=== PATIENT | female | born 1980 | race Caucasian/White ===

== ENCOUNTER 2024-11-07 16:17 | Emergency (ER) | payer OTHER ==
[2024-11-07 16:34] VITALS: RESP 18
--- NOTE | 2024-11-07 16:36 | ED ---
General Adult HPI - General Chief complaint: Urogenital Stated complaint: 7 wks, bleeding, cramping Time Seen by Provider: 11/07/24 16:35 Source: patient, RN notes reviewed Mode of arrival: ambulatory Limitations: no limitations - History of Present Illness Initial comments: This is a 44 year old female with no pertinent medical history, [id number], prese nting to the emergency department at approximately 7 weeks gestation with a chief complaint of vaginal bleeding and pelvic cramping. She states that this morning when she went to use the bathroom she noticed there was bright pink blood on the toilet paper. Patient went to [facility] where they evaluated her urine and discharged her stating that there were no signs of infection in her urine. She states that the bleeding has persisted and worsened through the day is not bright red. denies passage of clots. she endorses suprapubic tenderess. denies urinary complaints, nausea, vomiting, dizziness or lightheadedness. she has had an US within the last few weeks that has confirmed an IUP. Follow with Dr. Marroquin at [facility], has not yet had an appointment with her OB for this . - Related Data Allergies Allergy/AdvReac Type Severity Reaction Status Date / Time latex Allergy Rash/Hives Verified 11/07/24 16:34 Review of Systems ROS Statement: Those systems with pertinent positive or pertinent negative responses have been documented in the HPI. ROS Other: All systems not noted in ROS Statement are negative. Past Medical History Past Medical History: Asthma History of Any Multi-Drug Resistant Organisms: None Reported Past Surgical History: Orthopedic Surgery Past Psychological History: No Psychological Hx Reported Smoking Status: Current every day smoker Past Alcohol Use History: None Reported Past Drug Use History: None Reported General Exam Limitations: no limitations General appearance: alert, in no apparent distress Neck exam: Present: normal inspection. Absent: tenderness, meningismus, lymphadenopathy Respiratory exam: Present: normal lung sounds bilaterally. Absent: respiratory distress, wheezes, rales, rhonchi, stridor Cardiovascular Exam: Present: regular rate, normal rhythm, normal heart sounds. Absent: systolic murmur, diastolic murmur, rubs, gallop, clicks GI/Abdominal exam: Present: soft, tenderness (suprapubic/pelvic), normal bowel sounds. Absent: distended, guarding, rebound, rigid Extremities exam: Present: normal inspection, full ROM, normal capillary refill. Absent: tenderness, pedal edema, joint swelling, calf tenderness Back exam: Present: normal inspection. Absent: CVA tenderness (R), CVA tenderness (L) Course Vital Signs 11/07/24 11/07/24 11/07/24 16:30 16:56 18:40 Temperature 98.8 F 98.4 F Pulse Rate 73 81 76 Respiratory 18 18 18 Rate Blood Pressure 96/60 98/33 101/56 O2 Sat by Pulse 100 100 97 Oximetry Medical Decision Making - Medical Decision Making Was pt. sent in by a medical professional or institution (, PA, PURCHASING OFFICER, urgent care, hospital, or [facility]...) When possible be specific @ -No Did you speak to anyone other than the patient for history (EMS, parent, family, police, friend...)? What history was obtained from this source @ -No Did you review nursing and triage notes (agree or disagree)? Why? @ -I reviewed and agree with nursing and triage notes Were old charts reviewed (outside hosp., previous admission, EMS record, old EKG, old radiological studies, urgent care reports/EKG's, [facility] records)? Report findings @ -No old charts were reviewed Differential Diagnosis (chest pain, altered mental status, abdominal pain women, abdominal pain men, vaginal bleeding, weakness, fever, dyspnea, syncope, headache, dizziness, GI bleed, back pain, seizure, CVA, palpatations, mental health, musculoskeletal)? @ -Differential Vaginal Bleeding: Spontaneous , threatened , molar , ectopic , bloody show, incompetent cervix, abruptioplacenta, placenta previa, uterine rupture, dysfunctional uterine bleeding, hemorrhage, uterine fibroids, this is not meant to be an all-inclusive list. EKG interpreted by me (3pts min.). @ -None X-rays interpreted by me (1pt min.). @ -None done CT interpreted by me (1pt min.). @ -None done U/S interpreted by me (1pt. min.). @ -OB ultrasound. Completed with a intrauterine with an estimated gestational age of 6 weeks 0 days based on crown-rump length, no heart incidental at this time, findings indeterminate of potential early intrauterine or demise. What testing was considered but not performed or refused? (CT, X-rays, U/S, labs)? Why? @ -None What meds were considered but not given or refused? Why? @ -None Did you discuss the management of the patient with other professionals (professionals i.e. , PA, PURCHASING OFFICER, lab, RT, psych nurse, marriage and family social worker, pier hand, teacher, retail loan officer, counseling case manager)? Give summary @ -No Was smoking cessation discussed for >3mins.? @ -No Was critical care preformed (if so, how long)? @ -No Were there social determinants of health that impacted care today? How? (Homelessness, low income, unemployed, alcoholism, drug addiction, transportation, low edu. Level, literacy, decrease access to med. care, [facility]ci, rehab)? @ -No Was there de-escalation of care discussed even if they declined (Discuss DNR or withdrawal of care, Hospice)? DNR status @ -No What co-morbidities impacted this encounter? (DM, HTN, Smoking, COPD, CAD, Cancer, CVA, ARF, Chemo, Hep., AIDS, mental health diagnosis, sleep apnea, morbid obesity)? @ -None Was patient admitted / discharged? Hospital course, mention meds given and route, prescriptions, significant lab abnormalities, going to OR and other [facility] info. @ -discharged. 44-year-old female presents emergency room with vaginal bleeding during . Overall patient is well-appearing. She is noted have mild suprapubic/pelvic tenderness [place] [address]. Urinalysis unremarkable. Ultrasound reveals an intrauterine with a gestational age of 6 weeks with no heart tones detected at this time. Patient's blood type is B+. With concern for early or threatened miscarriage patient provided with prescription for repeat hCG testing in 48 hours and recommend repeat ultrasound in 1 week. Return parameters discussed. Case discussed with Dr. Steinberg Undiagnosed new problem with uncertain prognosis? @ -No Drug Therapy requiring intensive monitoring for toxicity (Heparin, Nitro, Insulin, Cardizem)? @ -No Were any procedures done? @ -No Diagnosis/symptom? @ -threatened miscarriage Acute, or Chronic, or Acute on Chronic? @ -acute Uncomplicated (without systemic symptoms) or Complicated (systemic symptoms)? @ -uncomplicated Side effects of treatment? @ -No Exacerbation, Progression, or Severe Exacerbation? @ -No Poses a threat to life or bodily function? How? (Chest pain, USA, CA, pneumonia, PE, COPD, DKA, ARF, appy, cholecystitis, CVA, Diverticulitis, Homicidal, Suicidal, threat to staff... and all critical care pts) @ -No - Lab Data Result diagrams: 11/07/24 17:05 11/07/24 17:05 Lab Results 11/07/24 11/07/24 11/07/24 Range/Units 17:04 17:05 17:05 WBC 7.91 (4.50-10.00) 10*3/uL RBC 4.89 (4.10-5.20) 10*6/uL Hgb 12.9 (12.0-15.0) g/dL Hct 39.8 (37.2-46.3) % MCV 81.4 (80.0-97.0) fL MCH 26.4 L (27.0-32.0) pg MCHC 32.4 (32.0-37.0) g/dL Plt Count 247 (140-440) 10*3/uL MPV 11.4 (9.5-12.2) fL Immature Gran % (Auto) 0.5 % Neutrophils % 51.7 % Lymphocytes % 37.3 % Monocytes % 5.3 % Eosinophils % 3.4 % Basophils % 1.8 % Immature Gran # 0.04 (0.00-0.04) 10*3/uL Neutrophils # 4.09 (1.80-7.70) 10*3/uL Lymphocytes # 2.95 (0.90-5.00) 10*3/uL Monocytes # 0.42 (0.20-1.00) 10*3/uL Eosinophils # 0.27 (0.04-0.35) 10*3/uL Basophils # 0.14 H (0.00-0.10) 10*3/uL Sodium (137-145) mmol/L Potassium (3.5-5.1) mmol/L Chloride (98-107) mmol/L Carbon Dioxide (22-30) mmol/L Anion Gap mmol/L BUN (7-17) mg/dL Creatinine (0.52-1.04) mg/dL Est GFR (CKD-EPI)AfAm (>60 ml/min/1.73 sqM) Est GFR (CKD-EPI)NonAf (>60 ml/min/1.73 sqM) Glucose (74-99) mg/dL Calcium (8.4-10.2) mg/dL Total Bilirubin (0.2-1.3) mg/dL AST (14-36) U/L ALT (4-34) U/L Alkaline Phosphatase (38-126) U/L Total Protein (6.3-8.2) g/dL Albumin (3.5-5.0) g/dL HCG, Quant mIU/mL Urine Color Yellow Urine Appearance Clear (Clear) Urine pH 8.0 (5.0-8.0) Ur Specific Appling 1.019 (1.001-1.035) Urine Protein Negative (Negative) Urine Glucose (UA) Negative (Negative) Urine Ketones Negative (Negative) Urine Blood Moderate H (Negative) Urine Nitrite Negative (Negative) Urine Bilirubin Negative (Negative) Urine Urobilinogen 2.0 (<2.0) mg/dL Ur Leukocyte Esterase Negative (Negative) Urine RBC 2 (0-5) /hpf Urine WBC 1 (0-5) /hpf Ur Squamous Epith Cells 2 (0-4) /hpf Urine Bacteria Rare H (None) /hpf Blood Type Blood Type Confirm B Positive Blood Type Recheck Bld Type Recheck Status Antibody Screen Spec Expiration Date 11/07/24 11/07/24 Range/Units 17:05 17:06 WBC (4.50-10.00) 10*3/uL RBC (4.10-5.20) 10*6/uL Hgb (12.0-15.0) g/dL Hct (37.2-46.3) % MCV (80.0-97.0) fL MCH (27.0-32.0) pg MCHC (32.0-37.0) g/dL Plt Count (140-440) 10*3/uL MPV (9.5-12.2) fL Immature Gran % (Auto) % Neutrophils % % Lymphocytes % % Monocytes % % Eosinophils % % Basophils % % Immature Gran # (0.00-0.04) 10*3/uL Neutrophils # (1.80-7.70) 10*3/uL Lymphocytes # (0.90-5.00) 10*3/uL Monocytes # (0.20-1.00) 10*3/uL Eosinophils # (0.04-0.35) 10*3/uL Basophils # (0.00-0.10) 10*3/uL Sodium 140 (137-145) mmol/L Potassium 3.8 (3.5-5.1) mmol/L Chloride 106 (98-107) mmol/L Carbon Dioxide 25 (22-30) mmol/L Anion Gap 9 mmol/L BUN 7 (7-17) mg/dL Creatinine 0.53 (0.52-1.04) mg/dL Est GFR (CKD-EPI)AfAm >90 (>60 ml/min/1.73 sqM) Est GFR (CKD-EPI)NonAf >90 (>60 ml/min/1.73 sqM) Glucose 95 (74-99) mg/dL Calcium 10.0 (8.4-10.2) mg/dL Total Bilirubin 0.6 (0.2-1.3) mg/dL AST 29 (14-36) U/L ALT 32 (4-34) U/L Alkaline Phosphatase 59 (38-126) U/L Total Protein 7.1 (6.3-8.2) g/dL Albumin 4.4 (3.5-5.0) g/dL HCG, Quant 8550.5 mIU/mL Urine Color Urine Appearance (Clear) Urine pH (5.0-8.0) Ur Specific [place] (1.001-1.035) Urine Protein (Negative) Urine Glucose (UA) (Negative) Urine Ketones (Negative) Urine Blood (Negative) Urine Nitrite (Negative) Urine Bilirubin (Negative) Urine Urobilinogen (<2.0) mg/dL Ur Leukocyte Esterase (Negative) Urine RBC (0-5) /hpf Urine WBC (0-5) /hpf Ur Squamous Epith Cells (0-4) /hpf Urine Bacteria (None) /hpf Blood Type B Positive Blood Type Confirm Blood Type Recheck No Previous Record Bld Type Recheck Status CABO Indicated Antibody Screen NEGATIVE Spec Expiration Date 11/10/20242305 Disposition Clinical Impression: Threatened miscarriage Disposition: HOME SELF-CARE Condition: Stable Instructions (If sedation given, give patient instructions): Threatened Miscarriage (ED) Additional Instructions: Please return to the Emergency Department if symptoms worsen or any other concerns. Follow-up with repeat hCG testing in 48 hours. Follow-up with OB or return to the emergency department in 7 days for repeat ultrasound testing. Is patient prescribed a controlled substance at d/c from ED?: No Referrals: Jake Membreno DO [Primary Care Provider] - 1-2 days Time of Disposition: 18:23
[2024-11-07 17:25] LABS: ALT 32 U/L (4-34); AST 29 U/L (14-36); African American GFR (CKD) >90 (>60 ml/min/1.73 sqM); Albumin 4.4 g/dL (3.5-5.0); Alkaline Phosphatase 59 U/L (38-126); Anion Gap 9 mmol/L; Blood Urea Nitrogen 7 mg/dL (7-17); Carbon Dioxide 25 mmol/L (22-30); Chloride 106 mmol/L (98-107); Glucose 95 mg/dL (74-99); Non-African American GFR(CKD) >90 (>60 ml/min/1.73 sqM); Potassium 3.8 mmol/L (3.5-5.1); Sodium 140 mmol/L (137-145); Total Bilirubin 0.6 mg/dL (0.2-1.3); Total Protein 7.1 g/dL (6.3-8.2)
[2024-11-07 17:42] LABS: HCG,Quantitative Serum 8550.5 mIU/mL
[2024-11-07 17:46] LABS: Appearance,Urine Clear (Clear); Bacteria,Urine Rare /hpf; Bilirubin,Urine Negative (Negative); Blood,Urine Moderate (Negative); Color,Urine Yellow; Glucose,Urine (UA) Negative (Negative); Ketones,Urine Negative (Negative); Leukocyte Esterase,Urine Negative (Negative); Nitrite,Urine Negative (Negative); Protein,Urine Negative (Negative); RBC,Urine 2 /hpf (0-5); Specific Gravity,Urine 1.019 (1.001-1.035); Squamous Epithelial Cell,Urine 2 /hpf (0-4); WBC,Urine 1 /hpf (0-5)
--- NOTE | 2024-11-07 17:54 | US ---
EXAMINATION TYPE: Transabdominal DATE OF EXAM: 11/07/2024 5:37 PM COMPARISON: NONE CLINICAL INDICATION: Female, 44 years old with history of 7 weeks, spotting and cramping; Patient st ates having previous ultrasound at [facility] a few weeks ago and heart beat was seen. Bleeding. TECHNIQUE: Transvaginal (TV) and Transabdominal (TA) with grayscale and color Doppler imaging includi ng first trimester . FINDINGS: EXAM MEASUREMENTS: GESTATIONAL AGE / DATING Physician Established: Not yet established Dates by LMP: LMP unknown Dates by First Scan: (7 weeks/3 days) EDC: 06/23/2025 Dates by Current Scan for: (6 weeks/0 days) EDC: 07/03/2025 MATERNAL ANATOMY Uterus: 9.7 x 6.8 x 5.8 cm Right Ovary: 2.9 x 1.9 x 1.8 cm Left Ovary: Obscured by bowel gas Post CDS / Adnexa: no free fluid Presence of free fluid: no Presence of corpus luteal cyst: right ovarian hypoechoic lesion - 1.6 x 1.4 x 1.1 cm Presence of subchorionic bleed: No GESTATION / SURVEY CRL: 0.3 cm (6 weeks/0 days) Gestational Sac morphology: unremarkable Gestational Sac MSD: seen, not measured Yolk Sac (normal less than 6mm): 3.5 mm Posey rump length: 3 mm. Cardiac Activity/Heart Rate: 0 bpm, color doppler and mmode performed IUP: No cardiac activity noted on today's scan. Date of LMP: Unknown, Beta HcG (if available): Not available at this time IMPRESSION: Intrauterine with estimated gestational age of 6 weeks 0 days based on crown-rump length. N o heart rate detected at this time. Findings are indeterminate for either early intrauterine pr egnancy or demise. Recommend serial trending of beta hCG values and short-term follow-up pelvic ultrasound as clinically indicated. [facility], , 11/07/2024 5:52 PM
[2024-11-07 18:02] LABS: Basophils # (A) 0.14 10*3/uL (0.00-0.10); Basophils % (A) 1.8 %; Eosinophils # (A) 0.27 10*3/uL (0.04-0.35); Eosinophils % (A) 3.4 %; HCT 39.8 % (37.2-46.3); HGB 12.9 g/dL (12.0-15.0); Lymphocytes # (A) 2.95 10*3/uL (0.90-5.00); Lymphocytes % (A) 37.3 %; MCH 26.4 pg (27.0-32.0); MCHC 32.4 g/dL (32.0-37.0); MCV 81.4 fL (80.0-97.0); Mean Platelet Volume 11.4 fL (9.5-12.2); Monocytes # (A) 0.42 10*3/uL (0.20-1.00); Monocytes % (A) 5.3 %; Neutrophils # (A) 4.09 10*3/uL (1.80-7.70); Neutrophils % (A) 51.7 %; Platelet Count 247 10*3/uL (140-440); RBC 4.89 10*6/uL (4.10-5.20); RDW 16.6 % (11.5-14.5); WBC 7.91 10*3/uL (4.50-10.00)
[2024-11-07 18:42] VITALS: BP 101/56; PULSE 76; TEMP 98.4
== END 2024-11-07 18:41 | disposition home or self-care (01) ==
LOC: EC 16:17
DX: O20.0 Threatened abortion (principal); O99.331 Smoking (tobacco) complicating pregnancy, first trimester; F17.200 Nicotine dependence, unspecified, uncomplicated; Z91.040 Latex allergy status; Z3A.01 Less than 8 weeks gestation of pregnancy
CPT/HCPCS: 36415; 76801; 76817; 80053; 81001; 84702; 85025; 86850; 86900; 86901; 99284

== ENCOUNTER → 2024-11-09 | Outpatient (CLI) | payer OTHER | END | disposition home or self-care (01) | LOC: LABWHC1 12:32 | PROVIDERS: ATTEND Physician Assistant | DX: O20.0 Threatened abortion (principal); Z3A.00 Weeks of gestation of pregnancy not specified | CPT/HCPCS: 36415; 84702; 99203 ==